=== PATIENT | male | born 1960 | race Caucasian/White ===

== ENCOUNTER 2022-03-20 06:53 | Day surgery (SDC) | payer MEDICAID ==
[2022-03-20] MEDS ORDERED: Propofol 200 MG/20 ML SDV ONE (07:14)
[2022-03-20] MEDS ORDERED: fentaNYL 100 MCG/2 ML SDV ONE (07:14)
[2022-03-20] MEDS ORDERED: Midazolam 1 MG/ML 2 ML SDV ONE (07:15)
[2022-03-20] MEDS ORDERED: Lactated Ringers 1,000 ML IV SCH (07:30)
== END 2022-03-20 09:17 | disposition home or self-care (01) ==
LOC: JP.SDS 06:53
PROVIDERS: ATTEND Student in an Organized Health Care Education/Training Program
DX: Z12.11 Encounter for screening for malignant neoplasm of colon (principal); K57.30 Diverticulosis of large intestine without perforation or abscess without bleeding; G47.33 Obstructive sleep apnea (adult) (pediatric); Z79.899 Other long term (current) drug therapy; Z90.49 Acquired absence of other specified parts of digestive tract
CPT/HCPCS: 45378; J2250; J2704; J3010; J7120